=== PATIENT | female | born 1995 | race African-American/Black ===

== ENCOUNTER 2021-05-27 11:20 | Emergency (ER) | payer OTHER ==
[~2021-05-27] VITALS: Ht 157.5 cm; Wt 86.6 kg
[2021-05-27] MEDS ORDERED: AUGMENTIN 875-1 EACH PO (13:37)
[2021-05-27 13:50] VITALS: BP 118/66
--- NOTE | 2021-05-27 14:51 | EKG ---
[place] [address] [facility] [place] [address] ELECTROCARDIOGRAM REPORT Name: CHEPE HIGH Room #: LEWIS Patel#: [id number] Admission: 05/27/21 Attend Phys: Discharge: 05/27/21 Date of : [birth year] Report #: [id number] 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 : 1995 Requested By: Susy Quiñones Order Number: [id number] MD: Jarad Mortensen Measurements Intervals [place] Rate: 97 P: 49 NM: 144 QRS: 54 QRSD: 89 T: 51 QT: 327 QTc: 416 Interpretive Statements Sinus rhythm RSR' in V1 or V2, probably normal variant No previous ECG available for comparison Electronically Signed On 05-27-2021 14:50:53 [employer]CH[employer] by Jarad Mortensen [email or web address] <ELECTRONICALLY SIGNED> By: Jarad Mortensen MD, [facility] 05/27/21 1450 1209 [id number] Jarad Mortensen MD, FACC /EPI
== END 2021-05-27 13:51 | disposition home or self-care (01) ==
LOC: ER 11:20
DX: J01.90 Acute sinusitis, unspecified (principal); Z20.822 Contact with and (suspected) exposure to COVID-19; B96.89 Other specified bacterial agents as the cause of diseases classified elsewhere; R05.9 Cough, unspecified; W26.8XXA Contact with other sharp object(s), not elsewhere classified, initial encounter; Y93.89 Activity, other specified; Y92.89 Other specified places as the place of occurrence of the external cause; Y99.8 Other external cause status

== ENCOUNTER 2021-05-29 19:39 | Emergency (ER) | payer OTHER ==
[~2021-05-29 19:39] MED LIST: AUGMENTIN 875-1 EACH PO
[2021-05-29 19:54] VITALS: BP 168/66
== END 2021-05-29 21:30 | disposition home or self-care (01) ==
LOC: ER 19:39
DX: R21 Rash and other nonspecific skin eruption (principal); Z53.21 Procedure and treatment not carried out due to patient leaving prior to being seen by health care provider